=== PATIENT | female | born 1980 | race Asian ===

== ENCOUNTER 2023-03-05 10:51 | Outpatient (CLI) | payer BC, SELFPAY | END 2023-03-05 10:52 | disposition home or self-care (01) | PROVIDERS: PCP Physician Assistant Medical; Visit Provider Physician Assistant Medical | DX: Z00.00 Encounter for general adult medical examination without abnormal findings (principal); I10 Essential (primary) hypertension | CPT/HCPCS: 82088; 84244; 84443; 87491; 87591 ==

== ENCOUNTER 2023-03-09 06:47 | Outpatient (CLI) | payer BC, SELFPAY ==
--- NOTE | 2023-03-09 07:15 | CRLHL7_ITS ---
For Patients: As a result of the Century Cures Act, medical imaging exams and procedure reports are released immediately into your electronic medical record. You may view this report before your referring provider. If you have questions, please contact your health care provider. INDICATION: Irregular menstruation COMPARISON: 11/30/2017 TECHNIQUE: 2D peng scale and color Doppler images were acquired of the pelvis using a transabdominal and transvaginal approach. FINDINGS: Sonographic images demonstrate a normal size and smooth outer contour of the uterus. Uterus measures 9.3 cm in length by 5.0 cm in AP diameter by 5.6 cm in transverse dimension. The myometrium has a normal uniform echotexture. The endometrial lining appears diffusely thickened and measures 2.1 cm in composite thickness. The right ovary measures 3.0 x 1.6 x 1.7 cm in size and the left ovary measures 2.6 x 1.7 x 1.5 cm. The ovaries demonstrate normal arterial and venous blood flow on color Doppler analysis. There are no suspicious fluid collections within the cul-de-sac. IMPRESSION: Diffusely thickened endometrium measuring 2.1 cm. No endometrial fluid or uterine fibroid. Dictated by Nathanael Sweeney MD @ 03/09/2023 8:52:20 AM (Electronically Signed)
== END 2023-03-09 06:48 | disposition home or self-care (01) ==
LOC: US 06:48
PROVIDERS: PCP Physician Assistant Medical; Visit Provider Physician Assistant Medical
DX: N92.6 Irregular menstruation, unspecified (principal); R93.89 Abnormal findings on diagnostic imaging of other specified body structures
CPT/HCPCS: 76830; 76856

== ENCOUNTER 2023-03-24 14:14 | Emergency (ER) | payer BC, SELFPAY ==
[2023-03-24 14:18] VITALS: BP 142/103; PULSE 71; RESP 16; TEMP 35.8; O2SAT 98; BMI 25.6
--- NOTE | 2023-03-24 14:31 | CRLHL7_ITS ---
For Patients: As a result of the Cures Act, medical imaging exams and procedure reports are released immediately into your electronic medical record. You may view this report before your referring provider. If you have questions, please contact your health care provider. INDICATION: Pain. TECHNIQUE: Three views of the cervical spine. COMPARISON: None. FINDINGS: Reversal of usual cervical lordosis at C4-C5, possibly positional. No static spondylolisthesis. The cervical vertebral body heights and intervertebral disc spaces are maintained. No substantial cervical spondylosis. Nonthickened prevertebral soft tissues. IMPRESSION: Unremarkable cervical spine series. Dictated by Ehsan Rodriguez MD @ 03/24/2023 3:45:04 PM Dictated by: Ehsan Rodriguez MD @ 03/24/2023 15:45:11 (Electronically Signed)
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
[2023-03-24] MEDS: MORPHINE 10 MG/ML inj 7.5 MG IM (14:54)
== END 2023-03-24 15:25 | disposition home or self-care (01) ==
PROVIDERS: Emergency Provider Family Medicine; PCP Physician Assistant Medical
DX: M54.2 Cervicalgia (principal)
CPT/HCPCS: 72040; 96372; 99283; 99284; J2270

== ENCOUNTER 2023-05-23 12:50 | Outpatient (CLI) | payer BC, SELFPAY ==
--- NOTE | 2023-05-23 13:20 | CRLHL7_ITS ---
For Patients: As a result of the Century Cures Act, medical imaging exams and procedure reports are released immediately into your electronic medical record. You may view this report before your referring provider. If you have questions, please contact your health care provider. BILATERAL SCREENING MAMMOGRAM WITH COMPUTER-AIDED DETECTION AND TOMOSYNTHESIS TECHNIQUE: CC and MLO views were obtained. These mammographic images have been obtained using full-field digital technique. These mammographic images were interpreted with the benefit of computer-aided detection. Breast Tomosynthesis was used in this interpretation. COMPARISON FILM: 01/30/22. FINDINGS: There are scattered areas of fibroglandular density IMPRESSION: There is no radiographic evidence for malignancy. ASSESSMENT: BI-RADS Category 1: Negative RECOMMENDATION: Routine screening mammogram in 1 year. A lay language report of this examination will be provided to the patient. Nathanael Sweeney M.D. Diagnostic Radiologist [email or web address] FARIHA/Dictated by: Nathanael Sweeney MD @ 05/24/2023 12:22:00 PM (Electronically Signed)
== END 2023-05-23 12:51 | disposition home or self-care (01) ==
LOC: MAMMO 12:51
PROVIDERS: PCP Physician Assistant Medical; Visit Provider Physician Assistant Medical
DX: Z12.31 Encounter for screening mammogram for malignant neoplasm of breast (principal)
CPT/HCPCS: 77063; 77067

== ENCOUNTER 2023-06-26 06:10 | Day surgery (SDC) | payer BC, SELFPAY ==
[2023-06-26 06:27] VITALS: BMI 27.6
[2023-06-26 06:27] LABS: Ur HCG Qualitative* Negative (Negative)
[2023-06-26] MEDS: LACTATED RINGERS 1000 ML 1,000 ML 100 ML IV (06:30)
[2023-06-26] MEDS: SODIUM CHLORIDE 0.9 % (FLUSH) 10 ML SYRINGE IVF (06:30)
[2023-06-26 06:45] VITALS: BP 121/82; PULSE 71; RESP 16; TEMP 36.9; O2SAT 97
[2023-06-26] MEDS: BUPIVACAINE 0.5% 30 ML INJECTION (07:41)
[2023-06-26] MEDS: SILVER NITRATE APPLICATOR 1 EACH STICK..EA. TOPICAL (07:45)
--- NOTE | 2023-06-26 07:55 | W.ANESCHARGE ---
Anesthesia Charges Start Date/Time Anesthesia Start Date: 06/26/23 Anesthesia Start Time: 07:27 Stop Date/Time Anesthesia Stop Date: 06/26/23 Anesthesia Stop Time: 08:10
--- NOTE | 2023-06-26 08:00 | SUR.OPER ---
defecit was 250ml
[2023-06-26 08:07] VITALS: BP 120/76; PULSE 76; RESP 18; TEMP 36.4; O2SAT 98
[2023-06-26 08:15] VITALS: BP 113/85; PULSE 68; RESP 18; O2SAT 99
--- NOTE | 2023-06-26 08:17 | W.PM.GYNPROC ---
Procedure Note Time Seen by Provider: 07:15 Date of procedure: 06/26/23 Pre-op diagnosis: Abnormal Uterine Bleeding-Suspected endometrial polyps Post-op diagnosis: same Procedure: Hysteroscopy, dilation and curettage Anesthesia: MAC Complications: None Surgeon: Holden oMnk MD Estimated blood loss (mL): 5 IV fluids (mL): 600 Urine Output (mL): 5 Pathology: specimen obtained, sent to pathology (1. Endometrial curetting 2. Endocervical curetting) Condition: stable Disposition: same day Findings: Findings: Bimanual exam: Anteverted uterus of about 8cm, regular contour, no adnexal masses. Intrauterine cavity: Bilateral cornual openings seen, thick and fluffy endometrium mostly posteriorly. Procedure Description: Patient was taken to the OR were MAC anesthesia was administered without difficulty. She was placed in the dorsal lithotomy position with Markus type stirrups. An exam under anesthesia as described above. Patient was then prepared and draped in the normal sterile fashion. A bivalved speculum was inserted in the posterior aspect of the vagina. 0.5% Marcaine was injected at 2 and 11 o'clock a total of about 5mL utilized. A single-tooth tenaculum was used to grasp the anterior lip of the cervix. The uterus was carefully sounded to 8 cm. The cervical os was sequentially dilated to accommodate the 5 mm TrueClear hysteroscope using Hegar dilators. A 5 mm 30 degree TrueClear hysteroscope was introduced under direct visualization, and the uterus was distended with normal saline. Findings as above. Soft tissue incisor blade from TrueClear hysteroscope system was introduced under direct visualization and endometrial curettings performed. Hysteroscope removed under direct visualization. ECC also completed. Tenaculum was removed from the cervix and good hemostasis was noted at puncture sites. Patient tolerated the procedure well. Instrument and sponge counts were correct x2. The patient was awakened from MAC anesthesia and taken to the recovery room in a stable condition. The patient will go home after recovering from anesthesia and meeting all the criteria for discharge. She was given instruction regarding follow-up visit in 2 weeks at [facility] and instructions for pain medication. Fluid deficit: 250mL
[2023-06-26 08:30] VITALS: BP 112/76; PULSE 62; RESP 16; O2SAT 99
[2023-06-26] MEDS: ACETAMINOPHEN 500 MG TABLET 1000 MG PO (08:53)
[2023-06-26 08:58] VITALS: BP 116/75; PULSE 66; RESP 16; O2SAT 100
[2023-06-26 09:15] VITALS: BP 118/70; PULSE 64; RESP 16; O2SAT 100
--- NOTE | 2023-06-26 11:37 | W.ANESCHARGE ---
Anesthesia Charges Start Date/Time Anesthesia Start Date: 06/26/23 Anesthesia Start Time: 07:27 Stop Date/Time Anesthesia Stop Date: 06/26/23 Anesthesia Stop Time: 08:10
== END 2023-06-26 09:25 | disposition home or self-care (01) ==
PROVIDERS: PCP Physician Assistant Medical; Visit Provider Obstetrics & Gynecology
PROC: 0UDB8ZZ Extraction of Endometrium, Via Natural or Artificial Opening Endoscopic (ICD-10-PCS; CPT 58558; principal; 2023-06-26 07:15)
DX: N93.8 Other specified abnormal uterine and vaginal bleeding (principal); N84.0 Polyp of corpus uteri
CPT/HCPCS: 58558; 00952; 81025; 88305; A9270; J0665; J1100; J1885; J2250; J2405; J2704; J3010; J7120

== ENCOUNTER 2023-08-23 07:30 | Outpatient (RCR) | payer BC, SELFPAY ==
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
== END 2023-10-22 15:59 | disposition home or self-care (01) ==
PROVIDERS: PCP Physician Assistant Medical; Visit Provider Obstetrics & Gynecology
DX: M54.2 Cervicalgia (principal); Z51.89 Encounter for other specified aftercare
CPT/HCPCS: 97012; 97035; 97110; 97140; 97162; 97166; X5282

== ENCOUNTER 2023-08-29 07:02 | Emergency (ER) | payer BC, SELFPAY ==
[2023-08-29 07:06] VITALS: BP 115/76; PULSE 72; RESP 18; TEMP 36.3; O2SAT 100; BMI 27.4
--- NOTE | 2023-08-29 07:16 | ED.GENADULT ---
HPI - General Adult General Time Seen by Provider: 07:18 <Kar Nelson MD - Last Filed: 08/31/23 08:22> Date Seen: 08/29/23 <Kar Nelson MD - Last Filed: 08/31/23 08:22> Chief complaint: Abdominal Pain <Kar Nelson MD - Last Filed: 08/31/23 08:22> Stated complaint: abdominal pain <Kar Nelson MD - Last Filed: 08/31/23 08:22> Time Seen by Provider: 08/29/23 07:10 <Kar Nelson MD - Last Filed: 08/31/23 08:22> Source: patient <Kar Nelson MD - Last Filed: 08/31/23 08:22> Mode of arrival: ambulatory <Kar Nelson MD - Last Filed: 08/31/23 08:22> Limitations: no limitations <Kar Nelson MD - Last Filed: 08/31/23 08:22> History of Present Illness HPI narrative: 43-year-old female who comes in today with left-sided abdominal pain. This started last night, initially was in the back and now wrapping around the front. Has a history of kidney stones and says this feels similar. Small amount of diarrhea, no fevers has had some nausea, no vomiting. No fevers. Does note some hematuria in the emergency department. <Kar Nelson MD - Last Filed: 08/31/23 08:22> Related Data Home medications: Home Medications Medication Instructions Recorded Confirmed losartan 25 mg tablet 25 mg PO QDAY 03/29/23 08/14/23 multivitamin 1 tab PO QAM 07/10/23 08/14/23 Previous Rx's Medication Instructions Recorded bupropion HCl 150 mg tablet,12 hr 300 mg (2 x 150 mg) PO QAM #180 03/05/23 sustained-release tabs <Kar Nelson MD - Last Filed: 08/31/23 08:22> Allergies/adverse reactions: Allergies Allergy/AdvReac Type Severity Reaction Status Date / Time nickel Allergy Unknown Verified 08/30/23 09:32 <Kar Nelson MD - Last Filed: 08/31/23 08:22> [facility] Medical History: Medical History Pain of left breast (01/2022) ?N64.4 - Mastodynia (ICD-10) ?Z34.90 - Encounter for supervision of normal , unspecified, unspecified trimester (ICD-10) History of renal calculi ?Z87.442 - Personal history of urinary calculi (ICD-10) <Kar Nelson MD - Last Filed: 08/31/23 08:22> Surgical History: Surgical History History of tubal ligation ?Z98.51 - Tubal ligation status (ICD-10) <Kar Nelson MD - Last Filed: 08/31/23 08:22> Family History: Family History Father High blood pressure Sister High blood pressure Other Diabetes Thyroid cancer <Kar Nelson MD - Last Filed: 08/31/23 08:22> Social History: Social History (Reviewed 08/30/23 @ 09:34 by Christine Bautista ~ [facility], [facility]) Narrative: . Her does have chronic health issues. 4 children (2 older daughters and 2 younger sons) Restorationist spiritism- Yazidism Nonsmoker What is your current living situation?: I presently have a place to live Problems where you live: no known problems In the past 12 months, utilities in danger of being shut off: no In past 12 months, lack of transportation kept you from medical appts, meetings, work, or getting things needed for daily living: no How hard is it for you to pay for the very basics like food, housing, medical care, and heating: not applicable In the past 12 mos, have been you worried that your food would run out before you had money to buy more?: never true In the past 12 mos, the food you bought just didn't last and you didn't have money to buy more?: never true Smoking Status: Never smoker Do you use any of these nicotine containing products: None How often do you have a drink containing alcohol: monthly or less Alcohol type: beer, wine and hard liquor How many standard drinks containing alcohol do you have on a typical day: 1 or 2 How often do you have six or more drinks on one occasion: Never AUDIT-C Alcohol total score: 1 Non-prescribed substance use: denies use Caffeine: Yes How often does anyone, including family, friends and others, physically hurt you: never How often does anyone, including family, friends and others, insult or talk down to you: never How often does anyone, including family, friends and others, threaten you with harm: never How often does anyone, including family, friends and others, scream or curse at you: never Little interest or pleasure in doing things: several days Feeling down, depressed, or hopeless: several days Are you using contraception or practicing any form of control: No <Kar Nelson MD - Last Filed: 08/31/23 08:22> Exam Narrative: Exam Narrative: General: Well-developed and well-nourished, no acute distress Head: Atraumatic and normocephalic Eyes: Pupils are equal reactive, extraocular motions intact, conjunctiva clear ENT: External nose and ears are normal, posterior pharynx without erythema or exudate Neck: No midline cervical tenderness, full spontaneous range of motion the neck, trachea midline, no adenopathy Heart: Regular rate and rhythm no murmurs or thrills Lungs: Clear to auscultation bilaterally without wheezes or crackles Abdomen: Soft, nontender, nondistended with active bowel sounds Musculoskeletal: No tenderness, deformity, or edema Neurologic: Awake, alert, and oriented x3, no gross focal neurologic deficits, cranial nerves intact as tested Psych: Mood and affect are appropriate Skin: No rashes <Kar Nelson MD - Last Filed: 08/31/23 08:22> Const: Vital Signs, click to edit/add: Vital Signs - 24 hr 08/29/23 07:06 Temperature 97.3 F L Pulse Rate [Right Pulse Oximeter] 72 Respiratory Rate 18 Blood Pressure [Ri ght Upper Arm] 115/76 Pulse Oximetry 100 Oxygen Delivery Me thod Room Air <Kar Nelson MD - Last Filed: 08/31/23 08:22> Vital Signs, click to edit/add: Vital Signs - 24 hr 08/29/23 07:06 Temperature 97.3 F L Pulse Rate [Right Pulse Oximeter] 72 Respiratory Rate 18 Blood Pressure [Ri ght Upper Arm] 115/76 Pulse Oximetry 100 Oxygen Delivery Me thod Room Air <Andriy Navarro MD - Last Filed: 08/29/23 08:01> Course Course ED Course: Patient seen examined, prior records are reviewed. Patient with history of kidney stones now with left lower quadrant pain and flank pain, hematuria. Toradol and Zofran ordered, likely kidney stone but will evaluate for other causes. <Kar Nelson MD - Last Filed: 08/31/23 08:22> Reevaluation(s) Time of Reevaluation #1: 07:35 <Kar Nelson MD - Last Filed: 08/31/23 08:22> Reevaluation #1: CT scan independently interpreted by me demonstrates a 3-4 mm left distal ureteral stone with no associated hydronephrosis or hydroureter. Labs are pending. Sign out to oncoming provider. <Kar Nelson MD - Last Filed: 08/31/23 08:22> Vital Signs Vital signs: Initial Vital Signs Temperature 97.3 F L 08/29/23 07:06 Temperature Source Temporal Artery Scan 08/29/23 07:06 Pulse Rate 72 08/29/23 07:06 Respiratory Rate 18 08/29/23 07:06 Blood Pressure 115/76 08/29/23 07:06 Blood Pressure Mean 89 08/29/23 07:06 Blood Pressure Position Sitting 08/29/23 07:06 Pulse Oximetry 100 08/29/23 07:06 Oxygen Delivery Method Room Air 08/29/23 07:06 Vital Signs Temperature 97.3 F L 08/29/23 07:06 Pulse Rate 72 08/29/23 07:06 Respiratory Rate 18 08/29/23 07:06 Blood Pressure 115/76 08/29/23 07:06 Pulse Oximetry 100 08/29/23 07:06 Oxygen Delivery Method Room Air 08/29/23 07:06 Temperature 97.3 F L 08/29/23 07:06 Pulse Rate 72 08/29/23 07:06 Respiratory Rate 18 08/29/23 07:06 Blood Pressure 115/76 08/29/23 07:06 Pulse Oximetry 100 08/29/23 07:06 Oxygen Delivery Method Room Air 08/29/23 07:06 <Kar Nelson MD - Last Filed: 08/31/23 08:22> Initial Vital Signs Temperature 97.3 F L 08/29/23 07:06 Temperature Source Temporal Artery Scan 08/29/23 07:06 Pulse Rate 72 08/29/23 07:06 Respiratory Rate 18 08/29/23 07:06 Blood Pressure 115/76 08/29/23 07:06 Blood Pressure Mean 89 08/29/23 07:06 Blood Pressure Position Sitting 08/29/23 07:06 Pulse Oximetry 100 08/29/23 07:06 Oxygen Delivery Method Room Air 08/29/23 07:06 Vital Signs Temperature 97.3 F L 08/29/23 07:06 Pulse Rate 72 08/29/23 07:06 Respiratory Rate 18 08/29/23 07:06 Blood Pressure 115/76 08/29/23 07:06 Pulse Oximetry 100 08/29/23 07:06 Oxygen Delivery Method Room Air 08/29/23 07:06 Temperature 97.3 F L 08/29/23 07:06 Pulse Rate 72 08/29/23 07:06 Respiratory Rate 18 08/29/23 07:06 Blood Pressure 115/76 08/29/23 07:06 Pulse Oximetry 100 08/29/23 07:06 Oxygen Delivery Method Room Air 08/29/23 07:06 <Andriy Navarro MD - Last Filed: 08/29/23 08:01> Medications Administered Medications: Discontinued Medications Generic Name Dose Route Start Last Admin Trade Name Freq PRN Reason Stop Dose Admin Ceftriaxone Sodium 2 gm/ 100 mls @ 200 mls/hr 08/29/23 07:52 08/29/23 08:50 Sodium Chloride IVPB 08/29/23 07:53 Infused ONCE ONE Infusion Ketorolac Tromethamine 15 mg 08/29/23 07:20 08/29/23 08:04 Ketorolac 15 Mg/Ml Inj IVP 08/29/23 07:21 15 mg ONCE ONE Administration Morphine Sulfate 2 mg 08/29/23 08:15 08/29/23 08:49 Morphine 2 Mg/Ml Inj IVP 08/29/23 08:16 2 mg ONCE ONE Administration Ondansetron HCl 4 mg 08/29/23 07:20 08/29/23 08:04 Ondansetron 2 Mg/Ml Inj IVP 08/29/23 07:21 4 mg ONCE ONE Administration <Kar Nelson MD - Last Filed: 08/31/23 08:22> Discontinued Medications Generic Name Dose Route Start Last Admin Trade Name Dewayne PRN Reason Stop Dose Admin Ceftriaxone Sodium 2 gm/ 100 mls @ 200 mls/hr 08/29/23 07:52 08/29/23 08:50 Sodium Chloride IVPB 08/29/23 07:53 Infused ONCE ONE Infusion Ketorolac Tromethamine 15 mg 08/29/23 07:20 08/29/23 08:04 Ketorolac 15 Mg/Ml Inj IVP 08/29/23 07:21 15 mg ONCE ONE Administration Morphine Sulfate 2 mg 08/29/23 08:15 08/29/23 08:49 Morphine 2 Mg/Ml Inj IVP 08/29/23 08:16 2 mg ONCE ONE Administration Ondansetron HCl 4 mg 08/29/23 07:20 08/29/23 08:04 Ondansetron 2 Mg/Ml Inj IVP 08/29/23 07:21 4 mg ONCE ONE Administration <Andriy Navarro MD - Last Filed: 08/29/23 08:01> Medical Decision Making MDM Narrative Medical decision making narrative: Patient has an [address] scan read that shows a 4.5 cm still in the distal left ureter. She has got mild hydronephrosis, she has got ill-defined hypodensity within the pancreas that they recommend a follow-up MRI scan. This could be done as an outpatient. The patient also has some bacteria in the urine will give her Rocephin IV and then cefdinir for home, Callaway for home, will give her 2 mg of morphine now. She feels much better. She certainly could have passed the stone already. Will strain her urine for 48 hours, follow up with Urology as per Dr. Germain note. Return as needed. <Andriy Navarro MD - Last Filed: 08/29/23 08:01> Lab Data Labs: Lab Results 08/29/23 08/29/23 Range/Units 07:40 Unknown WBC 12.40 H (4.50-11.00) K/uL RBC 4.46 (4.00-5.20) m/uL Hgb 13.3 (12.0-16.0) gm/dL Hct 40.3 (33.0-51.0) % MCV 90 (80-100) fL MCH 30 (26-34) pg MCHC 33 (32-36) gm/dL RDW Coeff of Cleve 12.2 (11.5-15.5) % Plt Count 268 (140-440) K/uL Neut % (Auto) 90.6 H (42.0-72.0) % Lymph % (Auto) 6.0 L (20-44) % Stanton % (Auto) 2.5 (0.0-11.0) % Eos % (Auto) 0.6 (0.0-7.0) % Baso % (Auto) 0.1 (0.0-3.0) % Neut # (Auto) 11.20 H (1.7-7.0) K/uL Lymph # (Auto) 0.70 L (0.90-2.90) K/uL Stanton # (Auto) 0.30 (0.00-0.90) K/UL Eos # (Auto) 0.10 (0.00-0.50) K/uL Baso # (Auto) 0.00 (0.00-0.30) K/uL Abs Immat Gran (auto) 0.00 (0.00-0.30) K/uL Imm/Tot Granulo (auto) 0.2 % Sodium 137 (135-149) mmol/L Potassium 4.1 (3.6-5.1) mmol/L Chloride 104 (96-114) mmol/L Carbon Dioxide 24 (20-32) mmol/L Anion Gap 9 (7-15) mEq/L BUN 13 (5-24) mg/dL Creatinine 0.8 (0.5-1.5) mg/dL Estimated Creat Clear 73.19 Estimated GFR 95 ml/min Glucose 106 (60-115) mg/dL Calcium 8.5 (8.4-10.6) mg/dL Urine Color Red A (Yellow) Urine Appearance Cloudy A (Clear) Urine pH 5.5 (5.0-8.5) Ur Specific [place] 1.025 (1.000-1.030) Urine Protein 3+ A (Negative) Urine Glucose (UA) Negative (Negative) Urine Ketones Trace A (Negative) Urine Blood 3+ A (Negative) Urine Nitrite Positive A (Negative) Urine Bilirubin 3+ A (Negative) Urine Urobilinogen 1.0 (0.2-1.0) Ur Leukocyte Esterase 3+ A (Negative) Urine RBC >100 A (0-2) Urine WBC 2-5 (0-5) Ur Squamous Epith Cells Few (None-Few) Urine Bacteria Many A (None) Urine HCG, Qual Negative (Negative) <Kar Nelson MD - Last Filed: 08/31/23 08:22> Lab Results 08/29/23 08/29/23 Range/Units 07:40 Unknown WBC 12.40 H (4.50-11.00) K/uL RBC 4.46 (4.00-5.20) m/uL Hgb 13.3 (12.0-16.0) gm/dL Hct 40.3 (33.0-51.0) % MCV 90 (80-100) fL MCH 30 (26-34) pg MCHC 33 (32-36) gm/dL RDW Coeff of Cleve 12.2 (11.5-15.5) % Plt Count 268 (140-440) K/uL Neut % (Auto) 90.6 H (42.0-72.0) % Lymph % (Auto) 6.0 L (20-44) % Stanton % (Auto) 2.5 (0.0-11.0) % Eos % (Auto) 0.6 (0.0-7.0) % Baso % (Auto) 0.1 (0.0-3.0) % Neut # (Auto) 11.20 H (1.7-7.0) K/uL Lymph # (Auto) 0.70 L (0.90-2.90) K/uL Stanton # (Auto) 0.30 (0.00-0.90) K/UL Eos # (Auto) 0.10 (0.00-0.50) K/uL Baso # (Auto) 0.00 (0.00-0.30) K/uL Abs Immat Gran (auto) 0.00 (0.00-0.30) K/uL Imm/Tot Granulo (auto) 0.2 % Sodium 137 (135-149) mmol/L Potassium 4.1 (3.6-5.1) mmol/L Chloride 104 (96-114) mmol/L Carbon Dioxide 24 (20-32) mmol/L Anion Gap 9 (7-15) mEq/L BUN 13 (5-24) mg/dL Creatinine 0.8 (0.5-1.5) mg/dL Estimated Creat Clear 73.19 Estimated GFR 95 ml/min Glucose 106 (60-115) mg/dL Calcium 8.5 (8.4-10.6) mg/dL Urine Color Red A (Yellow) Urine Appearance Cloudy A (Clear) Urine pH 5.5 (5.0-8.5) Ur Specific [place] 1.025 (1.000-1.030) Urine Protein 3+ A (Negative) Urine Glucose (UA) Negative (Negative) Urine Ketones Trace A (Negative) Urine Blood 3+ A (Negative) Urine Nitrite Positive A (Negative) Urine Bilirubin 3+ A (Negative) Urine Urobilinogen 1.0 (0.2-1.0) Ur Leukocyte Esterase 3+ A (Negative) Urine RBC >100 A (0-2) Urine WBC 2-5 (0-5) Ur Squamous Epith Cells Few (None-Few) Urine Bacteria Many A (None) Urine HCG, Qual Negative (Negative) <Andriy Navarro MD - Last Filed: 08/29/23 08:01> Discharge Plan Discharge Clinical Impression: Left ureteral stone <Kar Nelson MD - Last Filed: 08/31/23 08:22> Patient Disposition: Home, Self-Care <Kar Nelson MD - Last Filed: 08/31/23 08:22> Condition: Stable <Kar Nelson MD - Last Filed: 08/31/23 08:22> Instructions: Ureteral Stones (ED) <Kar Nelson MD - Last Filed: 08/31/23 08:22> Additional Instructions: ibuprofen 400 mg every 6 hours, Callaway as needed, strain urine for 48 hours. Please give Jm Contact [facility] for follow-up Drink to thirst <Kar Nelson MD - Last Filed: 08/31/23 08:22> Activity Level: Activity as Tolerated <Kar Nelson MD - Last Filed: 08/31/23 08:22> Activity as Tolerated <Andriy Navarro MD - Last Filed: 12/06/23 08:01> Discharge Diet: Regular <Kar Nelson MD - Last Filed: 08/31/23 08:22> Regular <Andriy Navarro MD - Last Filed: 08/29/23 08:01> Prescriptions: No Action bupropion HCl 150 mg tablet sustained-release 12 hr 300 mg PO QAM Qty: 180 3RF Rx Instructions: once daily in the morning for mood multivitamin Tablet 1 tab PO QAM losartan 25 mg tablet 25 mg PO QDAY <Kar Nelson MD - Last Filed: 08/31/23 08:22> Follow Up/Referrals: Guadalupe Faust PA-C [Primary Care Provider] - <Kar Nelson MD - Last Filed: 08/31/23 08:22> Stand Alone Forms: MyHealth Info Instructions <Kar Nelson MD - Last Filed: 08/31/23 08:22>
--- NOTE | 2023-08-29 07:21 | CRLHL7_ITS ---
For Patients: As a result of the 21st Century Cures Act, medical imaging exams and procedure reports are released immediately into your electronic medical record. You may view this report before your referring provider. If you have questions, please contact your health care provider. INDICATION: HEMATURIA, LLQ PAIN, LIKELY STONE TECHNIQUE: CT abdomen and pelvis without contrast, stone protocol. COMPARISON: None. FINDINGS: Kidney/ureters: There is a 4.5 cm stone within the distal left ureter resulting in mild hydroureteronephrosis. Additional punctate bilateral nonobstructing intrarenal calculi are noted. No right-sided hydronephrosis. Decompressed bladder. Liver/gallbladder/bile ducts: The liver is normal in size, shape and attenuation. Gallbladder is normal without visualized stones or inflammation. No biliary dilatation. Spleen/pancreas/adrenal glands: The spleen appears unremarkable. No adrenal nodule. Ill-defined hypodensity within the body of the pancreas measuring 1.3 x 1.1 cm. Finding is indeterminate and incompletely characterized on this nonenhanced CT but may represent a side branch IPMN. Recommend nonemergent MRI pancreatic protocol to further evaluate. GI tract: No bowel obstruction or inflammation. Normal appendix. Abdominal wall/omentum/peritoneum: No free air or significant free fluid. No mass or inflammation. Lymph nodes: No lymphadenopathy. Pelvis: Unremarkable pelvis. Lower chest: Unremarkable. Bones: No acute osseous abnormality. IMPRESSION: 1. There is a 4.5 cm stone within the distal left ureter resulting in mild hydroureteronephrosis. Additional punctate bilateral nonobstructing intrarenal calculi are noted. 2. Ill-defined hypodensity within the body of the pancreas measuring 1.3 x 1.1 cm. Finding is indeterminate and incompletely characterized on this nonenhanced CT but may represent a side branch IPMN. Recommend nonemergent MRI pancreatic protocol to further evaluate. Please note that all CT scans at this facility use dose modulation, iterative reconstruction, and/or weight-based dosing when appropriate to reduce radiation dose to as low as reasonably achievable. Dictated by Murali Bello MD @ 08/29/2023 7:53:56 AM (Electronically Signed)
[2023-08-29 07:31] LABS: Appearance Urine Cloudy (Clear); Bilirubin Urine 3+ (Negative); Blood Urine 3+ (Negative); Color Urine Red (Yellow); Glucose Urine Negative (Negative); Ketones Urine Trace (Negative); Leukocyte Esterase Urine 3+ (Negative); Nitrite Urine Positive (Negative); Protein Urine 3+ (Negative); Specific Gravity Urine 1.025 (1.000-1.030); pH Urine 5.5 (5.0-8.5)
[2023-08-29 07:35] LABS: Ur HCG Qualitative* Negative (Negative)
[2023-08-29 07:43] LABS: Bacteria Urine Many; RBC Urine >100 (0-2); Squamous Epithelial Cell Urine Few (None-Few)
[2023-08-29 07:51] LABS: Basophils Percent Auto 0.1 % (0.0-3.0); Eosinophils Percent Auto 0.6 % (0.0-7.0); Hematocrit 40.3 % (33.0-51.0); Hemoglobin* 13.3 gm/dL (12.0-16.0); Immature Granulocytes Pct Auto 0.2 %; Mean Corpuscular HGB Conc 33 gm/dL (32-36); Mean Corpuscular Hemoglobin 30 pg (26-34); Mean Corpuscular Volume 90 fL (80-100); Monocytes Percent Auto 2.5 % (0.0-11.0); Neutrophils Percent Auto 90.6 % (42.0-72.0); Platelet Count* 268 K/uL (140-440); RDW Coefficient of Variation % 12.2 % (11.5-15.5); Red Blood Count 4.46 m/uL (4.00-5.20)
[2023-08-29 07:56] LABS: Slide Review Reflex No
[2023-08-29 08:03] LABS: Chloride* 104 mmol/L (96-114); Potassium* 4.1 mmol/L (3.6-5.1); Sodium* 137 mmol/L (135-149)
[2023-08-29] MEDS: ONDANSETRON 2 MG/ML inj 4 MG IVP (08:04)
[2023-08-29] MEDS: cefTRIAXone 2 GM in 0.9 % SODIUM CHLORIDE Mini-bag 100 ML IVPB (08:04)
[2023-08-29] MEDS: KETOROLAC 15 MG/ML inj IVP (08:04)
[2023-08-29 08:06] LABS: Anion Gap 9 mEq/L (7-15); Blood Urea Nitrogen* 13 mg/dL (5-24); Carbon Dioxide* 24 mmol/L (20-32); Creatinine* 0.8 mg/dL (0.5-1.5); Est. Creatinine Clearance* 73.19; Estimated Glomerular Filt Rate 95 ml/min
[2023-08-29 08:07] LABS: Calcium* 8.5 mg/dL (8.4-10.6); Glucose* 106 mg/dL (60-115)
[2023-08-29] MEDS: MORPHINE 2 MG/ML inj IVP (08:49)
== END 2023-08-29 08:51 | disposition home or self-care (01) ==
LOC: ED 07:44
PROVIDERS: Emergency Provider Family Medicine; PCP Physician Assistant Medical
DX: N20.1 Calculus of ureter (principal)
CPT/HCPCS: 36415; 74176; 80048; 81001; 81025; 85025; 87086; 96365; 96375; 99284; J0696; J1885; J2270; J2405

== ENCOUNTER 2023-09-11 07:04 | Outpatient (CLI) | payer BC, SELFPAY ==
--- NOTE | 2023-09-11 07:15 | CRLHL7_ITS ---
For Patients: As a result of the 21st Century Cures Act, medical imaging exams and procedure reports are released immediately into your electronic medical record. You may view this report before your referring provider. If you have questions, please contact your health care provider. INDICATION: Pancreatic lesion. TECHNIQUE: Abdominal MRI. Standard T1, T2, diffusion-weighted imaging and postcontrast T1 weighted images. Contrast: 20 cc intravenous gadolinium. FINDINGS: Pancreas: Fluid signal lesion 11 mm near the tail of the pancreas. No suspicious features. No abnormal gadolinium enhancement. Example, series 8, image 11. The pancreatic duct is normal caliber. No pancreatic divisum is suggested. Liver: Non cirrhotic morphology with no mass lesion. Biliary tree: Limited assessment of the gallbladder are no obvious large stones. Normal caliber biliary tree. Miscellaneous abdomen: Normal spleen size. Adrenal glands and kidneys show no additional abnormality. Exophytic cyst from the left kidney. Normal caliber appendix. No suspicious lymph node enlargement. IMPRESSION: 1. Pancreatic cystic lesion with no duct communication favor an incidental side-branch IPMN. 2. Follow-up imaging q 2 years to evaluate stability for a total of 5 observations. Reference: : Management of Incidental Pancreatic Cysts: A White Paper of the ACR Incidental Findings Committee. Journal of the [employer]. Volume 14, Number 7, March 2017, pages 911-929 Dictated by Mao Canela MD @ 09/15/2023 2:04:18 PM (Electronically Signed)
== END 2023-09-11 07:05 | disposition home or self-care (01) ==
LOC: MRI 07:04
PROVIDERS: PCP Physician Assistant Medical; Visit Provider Physician Assistant Medical
DX: K86.89 Other specified diseases of pancreas (principal)
CPT/HCPCS: 74183; A9575

== ENCOUNTER 2024-08-22 08:05 | Outpatient (CLI) | payer BC, SELFPAY | END 2024-08-22 08:06 | disposition home or self-care (01) | LOC: NFLDREF 14:31 | PROVIDERS: PCP Physician Assistant Medical; Referring Provider Physician Assistant Medical; Visit Provider Physician Assistant Medical | DX: I10 Essential (primary) hypertension (principal); N92.6 Irregular menstruation, unspecified; E66.3 Overweight; Z13.6 Encounter for screening for cardiovascular disorders; Z13.1 Encounter for screening for diabetes mellitus | CPT/HCPCS: 80053; 80061; 82306; 84443 ==

== ENCOUNTER 2024-08-28 08:07 | Outpatient (CLI) | payer BC, SELFPAY ==
[2024-08-28 15:38] LABS: Chlamydia DNA Amplified* NOT DETECTED (No Detected); GC DNA Amplified* NOT DETECTED (No Detected)
[2024-08-30 03:00] LABS: HPV Source Cervix; HPV, High Risk by TMA Not Detected
[2024-09-15 17:01] LABS: Pap Test Reviewed by Path Done
== END 2024-08-28 08:08 | disposition home or self-care (01) ==
PROVIDERS: PCP Physician Assistant Medical; Visit Provider Physician Assistant Medical
DX: N92.6 Irregular menstruation, unspecified (principal); Z11.3 Encounter for screening for infections with a predominantly sexual mode of transmission; Z11.51 Encounter for screening for human papillomavirus (HPV)
CPT/HCPCS: 87491; 87591; 87624; 87625; 88141; 88142

== ENCOUNTER 2024-09-15 10:42 | Outpatient (CLI) | payer BC, SELFPAY ==
--- NOTE | 2024-09-15 10:45 | CRLHL7_ITS ---
For Patients: As a result of the Century Cures Act, medical imaging exams and procedure reports are released immediately into your electronic medical record. You may view this report before your referring provider. If you have questions, please contact your health care provider. INDICATION: Irregular menstruation COMPARISON: none TECHNIQUE: 2D peng scale and color Doppler images were acquired of the pelvis using a transabdominal and transvaginal approach. FINDINGS: Sonographic images demonstrate a normal size and smooth outer contour of the uterus. Uterus measures 9.0 cm in length by 4.4 cm in AP diameter by 4.6 cm in transverse dimension. Right mid posterior intramural fibroid is present measuring 10 x 6 x 10 millimeters. The endometrial lining appears normal and measures 10 mm in composite thickness. The right ovary measures 2.8 x 1.5 x 2.0 cm in size and the left ovary measures 1.6 x 1.8 x 1.8 cm. The ovaries demonstrate normal arterial and venous blood flow on color Doppler analysis. There are no suspicious fluid collections within the cul-de-sac. IMPRESSION: Endometrial thickness 1 cm. No endometrial fluid. Dictated by Nathanael Sweeney MD @ 09/15/2024 12:50:30 PM (Electronically Signed)
== END 2024-09-15 10:43 | disposition home or self-care (01) ==
LOC: US 10:43
PROVIDERS: PCP Physician Assistant Medical; Visit Provider Physician Assistant Medical
DX: N92.6 Irregular menstruation, unspecified (principal); R93.89 Abnormal findings on diagnostic imaging of other specified body structures; N84.1 Polyp of cervix uteri
CPT/HCPCS: 76830; 76856

== ENCOUNTER 2024-12-18 09:10 | Outpatient (CLI) | payer BC, SELFPAY ==
--- NOTE | 2024-12-18 09:15 | CRLHL7_ITS ---
For Patients: As a result of the Century Cures Act, medical imaging exams and procedure reports are released immediately into your electronic medical record. You may view this report before your referring provider. If you have questions, please contact your health care provider. BILATERAL DIGITAL SCREENING MAMMOGRAM WITH COMPUTER-AIDED DETECTION AND TOMOSYNTHESIS CLINICAL HISTORY: Routine screening exam. COMPARISON: 05/23/23, 01/30/22. TECHNIQUE: Digital mammogram in CC and MLO projections including computer-aided detection (CAD). Tomosynthesis was used in this interpretation. BREAST COMPOSITION: The breasts are heterogeneously dense, which may obscure small masses. FINDINGS: RIGHT Breast: Focal asymmetric density within the lower inner quadrant 3 cm from the nipple. LEFT Breast: No suspicious findings. IMPRESSION: RIGHT breast asymmetry/mass. RECOMMENDATIONS: Additional mammographic views of the RIGHT breast including 3D spot compression CC/MLO. RIGHT breast ultrasound may also be required. The [facility] will contact the patient. A lay language report of this examination will be provided to the patient. BI-RADS Category 0: Incomplete: Need Additional Imaging Evaluation Dictated by Nathanael Sweeney MD @ 12/23/2024 1:11:11 PM callie/Dictated by: Nathanael Sweeney MD @ 12/23/2024 1:11:00 PM (Electronically Signed)
== END 2024-12-18 09:11 | disposition home or self-care (01) ==
LOC: MAMMO 09:10
PROVIDERS: PCP Physician Assistant Medical; Visit Provider Physician Assistant Medical
DX: Z12.31 Encounter for screening mammogram for malignant neoplasm of breast (principal); R92.333 Mammographic heterogeneous density, bilateral breasts; N63.10 Unspecified lump in the right breast, unspecified quadrant
CPT/HCPCS: 77063; 77067

== ENCOUNTER 2024-12-30 10:40 | Outpatient (CLI) | payer BC, SELFPAY ==
--- NOTE | 2024-12-30 10:45 | CRLHL7_ITS ---
For Patients: As a result of the Cures Act, medical imaging exams and procedure reports are released immediately into your electronic medical record. You may view this report before your referring provider. If you have questions, please contact your health care provider. DIGITAL DIAGNOSTIC RIGHT MAMMOGRAM USING TOMOSYNTHESIS AND COMPUTER-AIDED DETECTION RIGHT BREAST ULTRASOUND CLINICAL HISTORY: RIGHT breast mass/asymmetry. COMPARISON: 12/18/24, 05/23/23, 01/30/22. TECHNIQUE: Digital RIGHT mammogram in two projections. Tomosynthesis and CAD were used in this interpretation. Real-time ultrasound imaging of RIGHT breast with imaging documentation. BREAST COMPOSITION: The breasts are heterogeneously dense, which may obscure small masses. FINDINGS: 3D spot compression CC/MLO RGHT breast mammogram images submitted. Decreased conspicuity of previously noted asymmetric density on the spot compression MLO view. No architectural distortion or suspicious calcifications. Targeted RIGHT breast ultrasound performed. At 3 o`clock 3 cm from the nipple, there are clustered microcysts present. No shadowing lesion. Additional cysts are present in the subareolar space. IMPRESSION: Benign fibrocystic changes. No evidence of malignancy. RECOMMENDATIONS: Routine screening mammography. A lay language report of this examination will be provided to the patient. BI-RADS Category 2: Benign Dictated by Nathanael Sweeney MD @ 12/30/2024 1:39:59 PM /Dictated by: Nathanael Sweeney MD @ 12/30/2024 1:39:00 PM (Electronically Signed)
--- NOTE | 2024-12-30 11:15 | CRLHL7_ITS ---
For Patients: As a result of the Cures Act, medical imaging exams and procedure reports are released immediately into your electronic medical record. You may view this report before your referring provider. If you have questions, please contact your health care provider. SEE DIGITAL DIAGNOSTIC RIGHT MAMMOGRAM PERFORMED SAME DAY CRL:[email or web address] perez/Dictated by: Nathanael Sweeney MD @ 12/30/2024 1:39:00 PM (Electronically Signed)
== END 2024-12-30 10:41 | disposition home or self-care (01) ==
LOC: MAMMO 10:41
PROVIDERS: PCP Physician Assistant Medical; Visit Provider Physician Assistant Medical
DX: N63.10 Unspecified lump in the right breast, unspecified quadrant (principal); R92.333 Mammographic heterogeneous density, bilateral breasts
CPT/HCPCS: 76642; 77065; G0279

== ENCOUNTER 2025-02-18 15:13 | Outpatient (CLI) | payer BC, SELFPAY | END 2025-02-18 15:14 | disposition home or self-care (01) | PROVIDERS: PCP Physician Assistant Medical; Visit Provider Physician Assistant Medical | DX: Z01.82 Encounter for allergy testing (principal); R14.0 Abdominal distension (gaseous) | CPT/HCPCS: 82784; 84443; 86003; 86231; 86258; 86364 ==

== ENCOUNTER 2025-03-03 19:50 | Emergency (ER) | payer BC, SELFPAY ==
[2025-03-03 19:58] VITALS: BP 136/89; PULSE 74; RESP 16; TEMP 36.6; O2SAT 97; BMI 27.4
--- NOTE | 2025-03-03 20:50 | ED_ITS ---
HPI - Headache General Time Seen by Provider: 20:50 Date Seen: 03/03/25 Chief Complaint: Headache/Migraine Stated Complaint: Reaction to medicatio, High BP, Headache Time Seen by Provider: 03/03/25 20:50 Source: patient and RN notes reviewed Mode of arrival: ambulatory Limitations: no limitations History of Present Illness HPI Narrative: Ainsley is a very pleasant 45-year-old female with a history of hypertension currently treated with losartan, history of depression treated with Wellbutrin and Cymbalta who comes to the emergency room with elevated blood pressure and new onset headache. Patient notes that she started Cymbalta or duloxetine 4 days ago and seemed to have significant fatigue. She normally has an elevated blood pressure and this was the case over the past 4 days. At approximately 1800 hours today she developed a headache. She notes that it was across her entire top of her head but now has localized to her left parietal area. At home she took her blood pressure and it was 139/100. She is concerned that this is causing her headache. She does have some visual blurriness but does not really describe any photophobia. She has not been nauseated. She denies any trauma. Denies recent cough cold congestion or fever. She has not had fever or chills. Patient has had headaches in the past but has never felt quite like this. He has no neck pain, no chest pain. Patient does note increased discomfort and ?pounding headache? when she stands up. Her most comfortable position is semi recumbent. Related Data Home Medications ?Medication ?Instructions ?Recorded ?Confirmed multivitamin 1 tab PO QAM 07/10/23 Previous Rx's ?Medication ?Instructions ?Recorded losartan 25 mg tablet 25 - 50 mg (1 - 2 x 25 mg) P O QDAY 08/28/24 #180 tabs bupropion HCl 150 mg 24 hr tablet, 150 mg PO QAM #90 t abs 02/18/25 extended release duloxetine 20 mg capsule,delayed 20 mg PO QDAY #90 cap s 02/26/25 release Allergies Allergy/AdvReac Type Severity Reaction Status Date / Time nickel Allergy Unknown Verified 02/18/25 14:22 Review of Systems Status of ROS: Reports: 10 or more systems reviewed and unremarkable except as noted in History and below Const: Reports: fatigue; Denies: fever or chills Eyes: Reports: blurry vision ENMT: Denies: throat pain, neck pain, nasal discharge or nasal congestion Cardio: Denies: chest pain, swelling of feet/ankles or shortness of breath with exertion Resp: Denies: shortness of breath or cough GI: Denies: abdominal pain, nausea or vomiting : Denies: painful urination Musculo: Denies: back pain, neck pain or extremity pain Neuro: Reports: headache; Denies: numbness in extremities, weakness in extremities or lack of coordination Endo: Reports: fatigue PFSH PFS Medical History Abnormal Pap smear of cervix (~08/2024) ?R87.619 - Unspecified abnormal cytological findings in specimens from cervix uteri (ICD-10) History of renal calculi ?Z87.442 - Personal history of urinary calculi (ICD-10) Surgical History History of tubal ligation ?Z98.51 - Tubal ligation status (ICD-10) Family History Father High blood pressure High cholesterol Sister High blood pressure Mother High blood pressure High cholesterol Maternal Grandfather Stroke Maternal Grandmother Stroke Other Diabetes Thyroid cancer Social History Narrative: . Her does have chronic health issues. 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 [employer]- [employer] Nonsmoker What is your current living situation?: I presently have a place to live Problems where you live: no known problems In the past 12 months, utilities in danger of being shut off: no In past 12 months, lack of transportation kept you from medical appts, meetings, work, or getting things needed for daily living: no How hard is it for you to pay for the very basics like food, housing, medical care, and heating: not applicable In the past 12 mos, have been you worried that your food would run out before you had money to buy more?: never true In the past 12 mos, the food you bought just didn't last and you didn't have money to buy more?: never true Smoking Status: Never smoker Do you use any of these nicotine containing products: None How often do you have a drink containing alcohol: monthly or less Alcohol type: beer, wine and hard liquor How many standard drinks containing alcohol do you have on a typical day: 1 or 2 How often do you have six or more drinks on one occasion: Never AUDIT-C Alcohol total score: 1 Non-prescribed substance use: denies use Caffeine: Yes How often does anyone, including family, friends and others, physically hurt you : never How often does anyone, including family, friends and others, insult or talk down to you: never How often does anyone, including family, friends and others, threaten you with harm: never How often does anyone, including family, friends and others, scream or curse at you: never Are you currently sexually active: Yes Are you using contraception or practicing any form of control: No service: No Exam Narrative: Exam Narrative: Alert and oriented. Clearly uncomfortable but nontoxic in appearance. EOM is full. Pupils are equal round and reactive. Head is atraumatic. Face symmetrical mentation normal. Heart with regular rate and rhythm. Lungs are clear bilaterally. Abdomen soft. Moving all extremities. No focal neurological deficits. Const: Vital Signs, click to edit/add: Vital Signs - 24 hr 03/03/25 19:58 03/03/25 21:50 Temperature 98 F Pulse Rate [Pulse Oximeter] 74 66 Respiratory Rate 16 16 Blood Pressure [Ri ght Upper Arm] 136/89 132/93 H Pulse Oximetry 97 97 Oxygen Delivery Me thod Room Air Room Air Documenting provider has reviewed patient's vital signs: yes Course Course ED Course: Differential diagnosis includes but is not limited to migraine, URI, intracranial bleed. No evidence of nuchal rigidity or fever to indicate meningitis. Given recent changes in her antidepressants, going from 300 mg of Wellbutrin daily to 150 and starting Cymbalta at 30 mg I am also considering medication effects. At this time will check CBC, basic panel and urinalysis. Will use the migraine protocol Reglan 10 mg IV piggyback and Benadryl 50 mg IV as well as 1 L normal saline. Reevaluation(s) Reevaluation #1: Patient notes that she is feeling improved at this time. Will allow her to rest and await her laboratory values. Reevaluation #2: Patient notes resolution of her headache and just states she is tired at this time. No evidence of elevated white count electrolyte abnormality or UTI. The trace ketones were noted. Tested negative for COVID influenza RSV. Vital Signs Vital signs: Initial Vital Signs Temperature 98 F 03/03/25 19:58 Temperature Source Temporal Artery Scan 03/03/25 19:58 Pulse Rate 74 03/03/25 19:58 Respiratory Rate 16 03/03/25 19:58 Blood Pressure 136/89 03/03/25 19:58 Blood Pressure Mean 104 03/03/25 19:58 Blood Pressure Position Sitting 03/03/25 19:58 Pulse Oximetry 97 03/03/25 19:58 Oxygen Delivery Method Room Air 03/03/25 19:58 Vital Signs Temperature 98 F 03/03/25 19:58 Pulse Rate 74 03/03/25 19:58 Respiratory Rate 16 03/03/25 19:58 Blood Pressure 136/89 03/03/25 19:58 Pulse Oximetry 97 03/03/25 19:58 Oxygen Delivery Method Room Air 03/03/25 19:58 Temperature 98 F 03/03/25 19:58 Pulse Rate 66 03/03/25 21:50 Respiratory Rate 16 03/03/25 21:50 Blood Pressure 132/93 H 03/03/25 21:50 Pulse Oximetry 97 03/03/25 21:50 Oxygen Delivery Method Room Air 03/03/25 21:50 Medications Administered Medications: Generic Name Dose Route Start Last Admin Trade Name Freq PRN Reason Stop Dose Admin Bupropion HCl 150 mg 03/04/25 09:00 03/03/25 22:20 Bupropion Xl 150 Mg Tablet PO 150 mg DAILY YAW Administration Discontinued Medications Generic Name Dose Route Start Last Admin Trade Name Freq PRN Reason Stop Dose Admin Diphenhydramine HCl 50 mg 03/03/25 21:03 03/03/25 21:33 Diphenhydramine 50 Mg/Ml Inj IVP 03/03/25 21:04 50 mg ONCE ONE Administration Sodium Chloride 1,000 mls @ 1,000 mls/hr 03/03/25 21:04 03/03/25 22:36 0.9 % Sodium Chloride 1000 Ml IV 03/03/25 22:03 Infused .Q1H YAW Infusion Metoclopramide HCl 10 mg/ 102 mls @ 306 mls/hr 03/03/25 21:03 03/03/25 22:22 Sodium Chloride IVPB 03/03/25 21:04 Infused ONCE ONE Infusion MDM - Headache MDM Narrative Medical decision making narrative: 1. Headache -resolved with Reglan 10 mg IV and Benadryl 50 mg IV as well as 1 L normal saline. She is fatigued at this time. No red flag symptoms. Possibly related to suddenly reduction in Wellbutrin XL. Tonight patient did receive 150 mg for a total of 300 today. Would like her to continue at 300 mg a day and discontinue Cymbalta. Follow-up with her primary for further discussion. Maria Del Carmen parada is happy to go home at this point and rest.No sore throat cough cold or fever and triple viral swab is negative. 2. Hypertension-resolved. Repeat blood pressure 120/82. I did suggest that the elevated blood pressure was likely because of the headache and not the cause of the headache. 3. Disposition-home. Return for worsening symptoms or recurrence of headache. Medical Records Attestation: I reviewed the patient's medical records. Lab Data Attestation: I reviewed the patient's lab results. Labs: Lab Results 03/03/25 03/03/25 Range/Units 21:15 21:40 WBC 8.68 (4.50-11.00) K/uL RBC 4.32 (4.00-5.20) m/uL Hgb 12.8 (12.0-16.0) gm/dL Hct 38.8 (33.0-51.0) % MCV 90 (80-100) fL MCH 30 (26-34) pg MCHC 33 (32-36) gm/dL RDW Coeff of Cleve 11.7 (11.5-15.5) % Plt Count 341 (140-440) K/uL Neut % (Auto) 70.2 (42.0-72.0) % Lymph % (Auto) 19.2 L (20-44) % [place] % (Auto) 6.6 (0.0-11.0) % Eos % (Auto) 3.7 (0.0-7.0) % Baso % (Auto) 0.2 (0.0-3.0) % Neut # (Auto) 6.09 (1.7-7.0) K/uL Lymph # (Auto) 1.70 (0.90-2.90) K/uL [place] # (Auto) 0.60 (0.00-0.90) K/UL Eos # (Auto) 0.32 (0.00-0.50) K/uL Baso # (Auto) 0.02 (0.00-0.30) K/uL Abs Immat Gran (auto) 0.01 (0.00-0.30) K/uL Imm/Tot Granulo (auto) 0.1 % Sodium 133 L (135-149) mmol/L Potassium 3.7 (3.6-5.1) mmol/L Chloride 99 (96-114) mmol/L Carbon Dioxide 28 (20-32) mmol/L Anion Gap 6 L (7-15) mEq/L BUN 16 (5-24) mg/dL Creatinine 0.8 (0.5-1.5) mg/dL Estimated Creat Clear 71.71 Estimated GFR 94 ml/min Glucose 139 H (60-115) mg/dL Calcium 8.7 (8.4-10.6) mg/dL Urine Color Yellow (Yellow) Urine Appearance Clear (Clear) Urine pH 6.0 (5.0-8.5) Ur Specific [place] 1.025 (1.000-1.030) Urine Protein Negative (Negative) Urine Glucose (UA) Negative (Negative) Urine Ketones Trace A (Negative) Urine Blood Negative (Negative) Urine Nitrite Negative (Negative) Urine Bilirubin Negative (Negative) Urine Urobilinogen 0.2 (0.2-1.0) Ur Leukocyte Esterase Negative (Negative) Urine RBC 0-2 (0-2) Urine WBC 0-2 (0-5) Ur Squamous Epith Cells Few (None-Few) Amorphous Sediment Few A (None) Urine Bacteria Few A (None) Urine Mucus Moderate A (None) SARS-CoV-2 (PCR) Negative SARS-CoV-2 (Negative) Influenza Type A (PCR) Negative PCR FLU A (Negative) Influenza Type B (PCR) Negative PCR FLU B (Negative) RSV (PCR) Negative PCR RSV (Negative) Discharge Plan Discharge Clinical Impression: Headache, Hypertension Patient Disposition: Home, Self-Care Condition: Improved Additional Instructions: Tomorrow you may go back up to Wellbutrin 300 mg daily. Hold Cymbalta or duloxetine for now. Follow-up with your primary MD for further evaluation. Return to the ER for return of headache, onset of new symptoms and as needed. Prescriptions: No Action multivitamin Tablet 1 tab PO QAM losartan 25 mg tablet 25 - 50 mg PO QDAY Qty: 180 1RF Rx Instructions: 1-2 tablets once daily for blood pressure bupropion HCl 150 mg tablet extended release 24 hr 150 mg PO QAM Qty: 90 0RF Rx Instructions: once daily new dosing duloxetine 20 mg capsule,delayed release(DR/EC) 20 mg PO QDAY Qty: 90 0RF Rx Instructions: once daily Follow Up/Referrals: Guadalupe Faust PA-C [Primary Care Provider, Family Practice] Stand Alone Forms: [facility] Info Instructions
[2025-03-03] MEDS: 0.9 % SODIUM CHLORIDE 1000 ml 1,000 ML IV (21:19)
[2025-03-03 21:31] LABS: Basophils Absolute Auto 0.02 K/uL (0.00-0.30); Basophils Percent Auto 0.2 % (0.0-3.0); Eosinophils Absolute Auto 0.32 K/uL (0.00-0.50); Eosinophils Percent Auto 3.7 % (0.0-7.0); Hematocrit 38.8 % (33.0-51.0); Hemoglobin* 12.8 gm/dL (12.0-16.0); Immature Granulocytes Abs Auto 0.01 K/uL (0.00-0.30); Immature Granulocytes Pct Auto 0.1 %; Lymphocytes Percent Auto 19.2 % (20-44); Mean Corpuscular HGB Conc 33 gm/dL (32-36); Mean Corpuscular Hemoglobin 30 pg (26-34); Mean Corpuscular Volume 90 fL (80-100); Monocytes Percent Auto 6.6 % (0.0-11.0); Neutrophils Absolute Auto 6.09 K/uL (1.7-7.0); Neutrophils Percent Auto 70.2 % (42.0-72.0); Platelet Count* 341 K/uL (140-440); RDW Coefficient of Variation % 11.7 % (11.5-15.5); Red Blood Count 4.32 m/uL (4.00-5.20); White Blood Count* 8.68 K/uL (4.50-11.00)
[2025-03-03] MEDS: diphenhydrAMINE 50 MG/ML inj IVP (21:33)
[2025-03-03] MEDS: METOCLOPRAMIDE HCL 10 MG in 0.9 % SODIUM CHLORIDE 100 ml 100 ML 306 MG IVPB (21:33)
[2025-03-03 21:48] LABS: Potassium* 3.7 mmol/L (3.6-5.1); Sodium* 133 mmol/L (135-149)
[2025-03-03 21:50] VITALS: BP 132/93; PULSE 66; RESP 16; O2SAT 97
[2025-03-03 21:51] LABS: Appearance Urine Clear (Clear); Bilirubin Urine Negative (Negative); Blood Urine Negative (Negative); Color Urine Yellow (Yellow); Glucose Urine Negative (Negative); Ketones Urine Trace (Negative); Leukocyte Esterase Urine Negative (Negative); Nitrite Urine Negative (Negative); Protein Urine Negative (Negative); Specific Gravity Urine 1.025 (1.000-1.030); Urobilinogen Urine 0.2 (0.2-1.0)
[2025-03-03 21:51] LABS: Blood Urea Nitrogen* 16 mg/dL (5-24); Calcium* 8.7 mg/dL (8.4-10.6); Carbon Dioxide* 28 mmol/L (20-32); Creatinine* 0.8 mg/dL (0.5-1.5); Est. Creatinine Clearance* 71.71; Estimated Glomerular Filt Rate 94 ml/min; Glucose* 139 mg/dL (60-115)
[2025-03-03 21:55] LABS: Amorphous Sediment Urine Few; Bacteria Urine Few; Mucus Urine Moderate; RBC Urine 0-2 (0-2); Squamous Epithelial Cell Urine Few (None-Few); WBC Urine 0-2 (0-5)
[2025-03-03 21:58] LABS: Slide Review Reflex No
[2025-03-03 22:03] LABS: Anion Gap 6 mEq/L (7-15); Chloride* 99 mmol/L (96-114)
[2025-03-03 22:15] LABS: PCR FLU A Negative PCR FLU A (Negative); PCR FLU B Negative PCR FLU B (Negative); PCR RSV Negative PCR RSV (Negative); SARS PCR* Negative SARS-CoV-2 (Negative)
[2025-03-03] MEDS: buPROPion XL 150 MG TABLET PO (22:20)
[2025-03-03 22:51] VITALS: BP 122/82; PULSE 68; RESP 16; TEMP 36.6; O2SAT 97
== END 2025-03-03 23:00 | disposition home or self-care (01) ==
PROVIDERS: Emergency Provider Family Medicine; PCP Physician Assistant Medical
DX: R51.9 Headache, unspecified (principal); I10 Essential (primary) hypertension
CPT/HCPCS: 36415; 80048; 81001; 85025; 87086; 87631; 96365; 96375; 99284; A9270; J1200; J2765; J7030

== ENCOUNTER 2025-08-19 12:25 | Outpatient (CLI) | payer BC, SELFPAY ==
--- NOTE | 2025-08-19 13:00 | CRLHL7_ITS ---
For Patients: As a result of the Century Cures Act, medical imaging exams and procedure reports are released immediately into your electronic medical record. You may view this report before your referring provider. If you have questions, please contact your health care provider. INDICATION: Follow-up pancreatic cyst TECHNIQUE: 1.5 T MRI of the abdomen performed with pre and postcontrast T1 weighted imaging; T2 weighted imaging; in and out of phase imaging; diffusion weighted imaging. 15 mL Dotarem IV COMPARISON: MR abdomen 09/11/2023 FINDINGS: Lungs: The lung bases are clear. No pleural or pericardial effusion. Liver: Homogeneous liver parenchyma. No hepatic masses. Biliary tree and gallbladder: No intra or extrahepatic biliary dilation. Fluid-filled gallbladder without stones. Spleen: Unremarkable Pancreas: Normal pancreatic parenchyma. No pancreatic masses. No pancreatic duct dilation. Increased lobulated pancreatic body cystic lesion measuring 1.2 x 1.4 cm (5/14), previously 0.9 x 1.2 cm. There may be a punctate internal nodular enhancing component or a mildly thickened septation measuring 0.3 cm (15/). Adrenal glands: Unremarkable. Kidneys and ureters: No renal masses or hydronephrosis. Bilateral subcentimeter T2 hyperintensities too small to accurately characterize, but likely benign cysts. GI tract: No evidence of obstruction or inflammation. Vasculature: The IVC and aorta are patent. No abdominal aortic aneurysm. Lymph nodes: No lymphadenopathy. Abdominal wall: Unremarkable Bones: Bone marrow signal is within normal limits IMPRESSION: Increased pancreatic body cystic lesion measuring 1.4 cm, previously 1.2 cm. There may be a punctate internal nodular enhancing component or mildly thickened septation measuring 0.3 cm. Recommend consultation with Gastroenterology, if not already performed, for consideration of EUS/FNA Dictated by Marleny Pennington MD @ 08/21/2025 2:07:21 PM (Electronically Signed)
== END 2025-08-19 12:26 | disposition home or self-care (01) ==
LOC: MRI 12:26
PROVIDERS: PCP Physician Assistant Medical; Visit Provider Physician Assistant Medical
DX: K86.2 Cyst of pancreas (principal); Z09 Encounter for follow-up examination after completed treatment for conditions other than malignant neoplasm
CPT/HCPCS: 74183; A9575